=== PATIENT | female | born 1955 | race Caucasian/White ===

== ENCOUNTER → 2016-11-05 09:56 | Outpatient (CLI) | payer BC, SELFPAY ==
--- NOTE | 2016-11-05 09:58 | HPBD_ITS ---
STUDY: DUAL ENERGY X-RAY ABSORPTIOMETRY / DXA REASON FOR EXAM: Female, 61 years old. The patient is postmenopausal. Loss of height. TECHNIQUE: Bone Mineral Density (BMD) measurements of lumbar spine and bilateral hips were obtained. COMPARISON: Comparison is made with prior study dated July 15, 2012. FINDINGS: Lumbar Spine (L1-L4): g/cm2 (1.095) / T-score (-0.7) / Z-score (0.7) Findings are suggestive of normal bone density with a low fracture risk. Left Femur Total: g/cm2 (0.927) / T-score (-0.6) / Z-score (0.4) Left Femoral Neck: g/cm2 (0.963) / T-score (-0.5) / Z-score (0.8) Right Femur Total: g/cm2 (1.004) / T-score (0.0) / Z-score (1.1) Right Femoral Neck: g/cm2 (0.969) / T-score (-0.5) / Z-score (0.9) The T-Scores on the most recent prior examination were: Lumbar Spine (L1-L4): There has been worsening of bone density since the previous examination. Left Femur Total: which represents a worsening of 1.3%. Right Femur Total: which represents a worsening of 4.1%. HPBD/Dexa Bone Density Study (HP) IMPRESSION: The patient is considered normal as outlined below according to World En[employer] Organization (WHO) criteria with a low fracture risk. There has been worsening of bone density since the previous examination. Reference Information: The T-score is the number of standard deviations above or below the standard which is normal for young adults at their peak bone mineral density. The World Health Organization (WHO) interprets the T-scores as follows: Above -1 Normal bone density Between -1 and -2.5 Osteopenia Equal to / or below -2.5 Osteoporosis As a practical clinical guideline, osteopenia may be graded as follows: Mild -1 through -1.5 Moderate -1.6 through -2.0 Severe -2.1 through -2.4 The Z-score is the number of standard deviations above or below age-matched controls. A Z-score of less than -1.5 would be considered abnormal. References: 1. NIH Osteoporosis and Related Bone Diseases http://www.osteo.org 2. International Society for Clinical Densitometry http://www.iscd.org 3. National Osteoporosis Foundation http://www.nof.org Electronically Signed: Gurinder Yates MD at 8:32 EDT Tel [phone], Service support ,
== END | disposition home or self-care (01) ==
PROVIDERS: Family Provider Family Medicine; PCP Family Medicine; Visit Provider Family Medicine
DX: Z13.820 Encounter for screening for osteoporosis (principal)
CPT/HCPCS: 77080

== ENCOUNTER → 2019-01-26 14:36 | Outpatient (CLI) | payer MEDICARE, OTHER, SELFPAY ==
[2019-01-26 16:37] VITALS: BMI 33.4
== END ==
PROVIDERS: Family Provider Family Medicine; PCP Family Medicine; Referring Provider Physician Assistant; Visit Provider Physician Assistant
DX: J02.9 Acute pharyngitis, unspecified (principal)
CPT/HCPCS: 87081

== ENCOUNTER → 2019-08-26 09:08 | Outpatient (CLI) | payer MEDICARE, OTHER, SELFPAY ==
[2019-01-26 16:37] VITALS: BMI 33.4
[2019-08-26 12:51] LABS: Erythrocyte Sedimentation Rate 26 mm/hr (0-30)
== END ==
PROVIDERS: PCP Family Medicine; Visit Provider Family Medicine
DX: R51 Headache (principal)
CPT/HCPCS: 36415; 85652

== ENCOUNTER 2020-05-10 19:21 | Emergency (ER) | payer OTHER, MEDICARE, SELFPAY ==
[2019-01-26 16:37] VITALS: BMI 33.4
[2020-05-10 19:21] VITALS: BP 136/71; PULSE 71; RESP 16; TEMP 36.7; O2SAT 98; BMI 33.9
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
[2020-05-10 21:27] VITALS: BP 134/86; PULSE 66; RESP 16; O2SAT 98
== END 2020-05-10 21:24 | disposition home or self-care (01) ==
LOC: ED 20:07
PROVIDERS: Emergency Provider Emergency Medicine; PCP Family Medicine
DX: S09.90XA Unspecified injury of head, initial encounter (principal); S16.1XXA Strain of muscle, fascia and tendon at neck level, initial encounter; S40.022A Contusion of left upper arm, initial encounter; V43.52XA Car driver injured in collision with other type car in traffic accident, initial encounter; Y93.89 Activity, other specified; Y92.410 Unspecified street and highway as the place of occurrence of the external cause; Y99.9 Unspecified external cause status
CPT/HCPCS: 70450; 72125; 73130; 99283

== ENCOUNTER 2020-09-20 11:02 | Outpatient (RCR) | payer MEDICARE, OTHER, SELFPAY ==
[2020-09-20] MEDS: COVID-19 VACC, MRNA(PFIZER)/PF 30 MCG/0.3 ML SYRINGE IM (09:11)
[2020-10-11] MEDS: COVID-19 VACC, MRNA(PFIZER)/PF 30 MCG/0.3 ML SYRINGE IM (08:50)
== END 2020-12-25 23:59 ==
LOC: IMMUN 11:02
PROVIDERS: PCP Family Medicine; Referring Provider Family Medicine; Visit Provider Family Medicine
DX: Z23 Encounter for immunization (principal)
CPT/HCPCS: 0001A; 0002A; 91300

== ENCOUNTER 2021-09-05 06:36 | Outpatient (CLI) | payer MEDICARE, OTHER, SELFPAY ==
--- NOTE | 2021-09-05 06:40 | CT_ITS ---
STUDY: CT ABDOMEN AND PELVIS WITH CONTRAST REASON FOR EXAM: Female, 65 years old. LLQ ABD PAIN RADIATION DOSAGE (If Supplied By Facility): CTDIvol = ( 17.86 ) mGy, DLP = ( 871.96 ) mGycm TECHNIQUE: Transaxial images were obtained from the dome of the diaphragm to the symphysis pubis with oral contrast. Oral and amp; IV Gastrografin and amp; 100mL Isovue-300 was administered. Sagittal and coronal images were reconstructed. Individualized dose optimization techniques were used for this CT. COMPARISON: None. FINDINGS: The visualized lung bases are unremarkable. The visualized portions of the heart are within normal limits. There is decreased attenuation of the liver consistent with steatosis. Normal gallbladder and extrahepatic biliary system. Normal spleen. Normal pancreas. Normal bilateral adrenal glands. Normal right kidney. There is a 1 cm cyst in the upper pole of the left kidney. A 1 cm cyst is also seen along the anterior midportion of the left kidney. There is a small hiatal hernia. Normal small intestine. Normal colon. The appendix is visualized and appears normal. Normal abdominal aorta. Normal inferior vena cava. Normal retroperitoneum. Normal urinary bladder. Normal abdominal wall. Normal osseous structures. CT/Abdomen/Pelvis WITH Contrast IMPRESSION: Fatty infiltration of the liver. There are 2 small cysts in the left kidney. Electronically Signed: Gurinder Yates MD at 9:37 EST ,
[2021-09-05 07:01] LABS: CREATININE FINGERSTICK 0.7 mg/dL (0.55-1.02); EGFR FINGERSTICK > 60.0000 mL/min (>60)
== END 2021-09-05 23:59 | disposition home or self-care (01) ==
LOC: CT 06:38
PROVIDERS: PCP Family Medicine; Referring Provider Family Medicine; Visit Provider Family Medicine
DX: R10.32 Left lower quadrant pain (principal); R19.4 Change in bowel habit; Z80.0 Family history of malignant neoplasm of digestive organs
CPT/HCPCS: 74177; Q9967

== ENCOUNTER 2021-10-04 08:41 | Day surgery (SDC) | payer MEDICARE, OTHER, SELFPAY ==
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
[2021-10-04 09:14] VITALS: BP 120/55; PULSE 66; RESP 16; TEMP 36.7; O2SAT 97; BMI 32.1
[2021-10-04] MEDS: Lactated Ringers 1,000 ML 15 ML IV (09:22)
--- NOTE | 2021-10-04 10:15 | COLBX_PTH ---
PATIENT: KHANH BELTRAN LOC: EN U#:[id number] AGE/SX: 66/F ROOM: RE10/04/[address]: Dr. Arnaldo Alan MD : 1955 BED: DIS: 10/04/2021 SPEC #: [id number] RECD: 10/04/21 12:24 STATUS: KAROL ALENA #: [id number] ORESTES: 10/04/21 10:[address]: Arnaldo Alan DEPT: SURGICAL PATHOLOGY RECD BY: Cara Alvarez ENTERED: 10/04/21 13:19 SP TYPE: COLON BX OTHR DR: Dr. Ovidio Amaya DO Tissues: COLON BIOPSY Procedures: Surgery Specimen Level IV HEADER OPERATION: Colonoscopy (MAC) PRE-OP DIAGNOSIS: Diarrhea TISSUE SUBMITTED: Random colon biopsy MICROSCOPIC DIAGNOSIS Colon, random biopsy: Fragments of colonic mucosa, no pathologic diagnosis. TANA:chris 10/07/2021 MICROSCOPIC DESCRIPTION Slides are reviewed. GROSS DESCRIPTION Received in fixative is one container labeled with the patient's name and designated random colon biopsy. The specimen consists of multiple irregular fragments of light [place] soft tissue that in aggregate measure 2 x 1 x 0.1 cm. The specimen is totally submitted in one cassette. / AM:chris 10/04/2021 TC:4 CPT: 22843
[2021-10-04 11:06] VITALS: BP 103/52; BP 120/55; PULSE 73; RESP 16; TEMP 36.7; O2SAT 98
--- NOTE | 2021-10-04 11:07 | OP.COLON_ITS ---
Patient Name: Jaci Talamantes Procedure Date: 10/04/2021 10:34 AM Date of : 1955 Age: 66 Procedure: Colonoscopy Indications: Pelvic pain, Clinically significant diarrhea of unexplained origin Providers: Arnaldo Alan MD Medicines: See the Anesthesia note for documentation of the administered medications Patient Profile: Last Colonoscopy: none. The patient's first colonoscopy is today. Complications: No immediate complications. Procedure: Pre-Anesthesia Assessment: - Prior to the procedure, a History and Physical was performed, and patient medications and allergies were reviewed. The patient's tolerance of previous anesthesia was also reviewed. The risks and benefits of the procedure and the sedation options and risks were discussed with the patient. All questions were answered, and informed consent was obtained. Prior Anticoagulants: The patient has taken no previous anticoagulant or antiplatelet agents. ASA Grade Assessment: II - A patient with mild systemic disease. After reviewing the risks and benefits, the patient was deemed in satisfactory condition to undergo the procedure. After I obtained informed consent, the scope was passed under direct vision. Throughout the procedure, the patient's blood pressure, pulse, and oxygen saturations were monitored continuously. The pediatric colonoscope was introduced through the anus and advanced to the cecum, identified by appendiceal orifice and ileocecal valve. The colonoscopy was somewhat difficult due to a tortuous colon. Successful completion of the procedure was aided by applying abdominal pressure. The patient tolerated the procedure well. The quality of the bowel preparation was fair. The ileocecal valve and the appendiceal orifice were photographed. Scope In: 10:44:13 AM Scope Withdrawal Time 0 hours 7 minutes 20 seconds Scope Out: 11:00:25 AM Total Procedure Duration Time 0 hours 16 minutes 12 seconds Findings: The perianal and digital rectal examinations were normal. The colon (entire examined portion) was moderately tortuous. Advancing the scope required using manual pressure. A small amount of semi-liquid stool was found in the entire colon, making visualization difficult. The exam was otherwise without abnormality. Biopsies for histology were taken with a cold forceps from the entire colon for evaluation of microscopic colitis. Impression: - Preparation of the colon was fair. - Tortuous colon. - Stool in the entire examined colon. - The examination was otherwise normal. - Biopsies were taken with a cold forceps from the entire colon for evaluation of microscopic colitis. Recommendation: - Discharge patient to home. - Resume previous diet. - Continue present medications. - Telephone my office for pathology results in 1 week. - Repeat colonoscopy in 10 years for screening purposes. Procedure Code(s): --- Professional --- 60311, Colonoscopy, flexible; with biopsy, single or multiple Diagnosis Code(s): --- Professional --- R10.2, Pelvic and perineal pain R19.7, Diarrhea, unspecified Q43.8, Other specified congenital malformations of intestine CPT copyright 2017 [employer]. All rights reserved. The codes documented in this report are preliminary and upon bleacher [employer] review may be revised to meet current compliance requirements. Arnaldo Alan MD 10/04/2021 11:06:56 AM This report has been signed electronically. Number of Addenda: 0 Note Initiated On: 10/04/2021 10:34 AM
--- NOTE | 2021-10-04 11:08 | OP.CCLET_ITS ---
10/04/2021 Ovidio Amaya [address] [place] [address] Re : Colonoscopy procedure for Jaci Talamantes Dear Dr. Amaya This procedure was performed on Monday, October 04, 2021. My impressions and recommendations are as follows: Impressions : - Preparation of the colon was fair. - Tortuous colon. - Stool in the entire examined colon. - The examination was otherwise normal. - Biopsies were taken with a cold forceps from the entire colon for evaluation of microscopic colitis. Recommendations : - Discharge patient to home. - Resume previous diet. - Continue present medications. - Telephone my office for pathology results in 1 week. - Repeat colonoscopy in 10 years for screening purposes. My findings are described in the full procedure note, which is enclosed. If I can be of further assistance, please feel free to contact me at Doctor phone number(s): Work: . Sincerely, Arnaldo Alan MD 10/04/2021 11:06:56 AM This report has been signed electronically.
[2021-10-04 11:10] VITALS: BP 120/55; BP 99/51; PULSE 68; RESP 16; O2SAT 99
[2021-10-04 11:15] VITALS: BP 103/54; BP 120/55; PULSE 68; RESP 16; O2SAT 98
[2021-10-04 11:22] VITALS: BP 108/66; BP 120/55; PULSE 68; RESP 16; TEMP 36.8; O2SAT 16
[2021-10-04 11:57] VITALS: BP 120/55
== END 2021-10-04 23:59 | disposition home or self-care (01) ==
LOC: EN 08:41 → AC 08:42
PROVIDERS: PCP Family Medicine; Referring Provider Family Medicine; Visit Provider Surgery
PROC: 0DJD8ZZ Inspection of Lower Intestinal Tract, Via Natural or Artificial Opening Endoscopic (ICD-10-PCS; CPT 45378; principal; 2021-10-04 10:10)
DX: R19.7 Diarrhea, unspecified (principal); H35.3210 Exudative age-related macular degeneration, right eye, stage unspecified; Q43.8 Other specified congenital malformations of intestine; K44.9 Diaphragmatic hernia without obstruction or gangrene; R15.9 Full incontinence of feces; R10.2 Pelvic and perineal pain; K76.0 Fatty (change of) liver, not elsewhere classified; N28.1 Cyst of kidney, acquired; F32.A Depression, unspecified; F41.9 Anxiety disorder, unspecified; Z79.899 Other long term (current) drug therapy; Z86.010 Personal history of colon polyps; Z80.0 Family history of malignant neoplasm of digestive organs
CPT/HCPCS: 45380; 88305; J7120; J2405

== ENCOUNTER → 2022-01-30 | Outpatient (CLI) | payer MEDICARE, OTHER, SELFPAY ==
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
== END | disposition home or self-care (01) ==
PROVIDERS: PCP Family Medicine; Referring Provider Chiropractor; Visit Provider Chiropractor
DX: S20.219A Contusion of unspecified front wall of thorax, initial encounter (principal)
CPT/HCPCS: 71101

== ENCOUNTER → 2023-05-30 | Outpatient (CLI) | payer MEDICARE, OTHER, SELFPAY ==
[2023-05-30 08:57] LABS: Absolute Lymphocyte Count 3.89 X10^3/uL (0.83-4.51); Absolute Neutrophil Count 2.8 X10^3/uL (2.0-7.7); Basophil# 0.07 X10^3/uL; Basophil% 0.9 % (0-1); Eosinophil# 0.12 X10^3/uL; Eosinophils% 1.6 % (0-5); Hematocrit 40.3 % (37-47); Hemoglobin 12.7 g/dL (12.0-15.0); Lymphocyte # 3.89 X10^3/ul (0.83-4.51); Lymphocyte % 52.4 % (19-41); Mean Corp Hgb Conc 31.5 g/dL (32-36); Mean Corpuscular Hgb 29.1 pg (27.0-32.0); Mean Corpuscular Volume 92.4 fL (81-99); Mean Platelet Vol. 11.7 fl (6.2-12.0); Monocyte% 6.7 % (0-10); NRBC Flagged by Analyzer 0 % (0-5); Neutrophil # 2.82 X10^3/uL (2.7-7.7); Neutrophil % 38.1 % (47-70); Platelet Count 187 K/mm3 (150-450); RBC Distribution Width CV 14.1 % (11.6-14.6); RBC Distribution Width SD 47.8 fl (35.1-43.9); Red Blood Count 4.36 M/mm3 (4.2-5.4); White Blood Count 7.4 K/mm3 (4.4-11.0)
[2023-05-30 09:33] LABS: ALB/GLOB Ratio 1.1 RATIO (0.9-2.4); AST(SGOT) 17 U/L (15-37); Alanine Aminotransfer ALT/SGPT 27 U/L (13-56); Albumin, Serum 3.4 g/dL (3.2-5.0); Alkaline Phosphatase 62 U/L (45-117); Anion Gap 3 (5-15); BUN 17 mg/dL (7-18); BUN/Creat Ratio 20.4 RATIO (10-20); Chloride 108 mmol/L (98-107); Cholesterol 240 mg/dL (200); Creatinine, Serum 0.84 mg/dL (0.55-1.02); EST Glomerular Filtration Rate 72 mL/min (>60); Est Glom Filt Rate - Afr Amer 87 mL/min (>60); Globulin 3.1 g/dL (2.2-4.2); Glucose 90 mg/dL (74-106); High Density Lipoprotein 86 mg/dL; Potassium 3.8 mmol/L (3.5-5.1); Protein, Total 6.5 g/dL (6.4-8.2); Sodium Level 140 mmol/L (136-145); Triglycerides 72 mg/dL; Very Low Density Lipoprotein 14 mg/dL (5-40)
== END | disposition home or self-care (01) ==
LOC: LAB 08:18
PROVIDERS: PCP Family Medicine; Referring Provider Family Medicine; Visit Provider Family Medicine
DX: E78.5 Hyperlipidemia, unspecified (principal); Z51.81 Encounter for therapeutic drug level monitoring
CPT/HCPCS: 36415; 80053; 80061; 85025

== ENCOUNTER → 2023-06-06 | Outpatient (CLI) | payer MEDICARE, OTHER, SELFPAY ==
--- NOTE | 2023-06-06 08:00 | MRI_ITS ---
STUDY: MRI CERVICAL SPINE WITHOUT CONTRAST REASON FOR EXAM: Female, 67 years old. LEFT C5-6 RADICULOPATHY TECHNIQUE: Standardized fat and water weighted pulse sequences were obtained in the sagittal and axial planes. COMPARISON: CT 05/10/2020 FINDINGS: Normal foramen magnum and brainstem-cervical cord junction. Normal craniovertebral junction. Normal anterior atlantoaxial articulation. Normal odontoid process. Normal cervical lordosis. Normal vertebral bodies and posterior osseous elements. C2-3: Normal endplates. Normal disc height, signal and morphology. Normal central canal and intervertebral neural foramina. C3-4: Severe right facet hypertrophy and mild left facet hypertrophy. 2 mm of anterolisthesis of C3 on C4 with no spinal stenosis or neural foraminal stenosis. C4-5: Mild left facet hypertrophy. No spinal stenosis or neural foraminal stenosis. C5-6: Mild bilobed disc osteophyte complex produces mild spinal stenosis and mild bilateral neural foraminal stenosis. C6-7: Mild broad disc osteophyte complex produces a mild spinal stenosis and mild bilateral neural foraminal stenosis. C7-T1: Normal endplates. Normal disc height, signal and morphology. Normal central canal and intervertebral neural foramina. Normal cervical cord. Normal visualized soft tissue structures. MRI/Spine Cervical (Routine) IMPRESSION: Multilevel degenerative changes, as described above. Electronically Signed: Florencio Vann MD at 23:04 EST ,
== END | disposition home or self-care (01) ==
LOC: MRI 07:58
PROVIDERS: PCP Family Medicine; Referring Provider Family Medicine; Visit Provider Family Medicine
DX: M54.12 Radiculopathy, cervical region (principal)
CPT/HCPCS: 72141

== ENCOUNTER → 2024-06-01 | Outpatient (CLI) | payer MEDICARE, OTHER, SELFPAY ==
--- NOTE | 2024-06-01 15:09 | RAD_ITS ---
INDICATION: B/L PAIN VS RADICULAR SX EXAMINATION/TECHNIQUE: X-RAY - XR Hips Bilateral with Pelvis when performed; Min 5 Views COMPARISON: Right hip radiographs dated 09/07/2019. FINDINGS: PELVIC BONES: No displaced fracture, destructive or sclerotic lesions. Note that overlapping bowel shadows may however obscure fine detail. Sacroiliac joints are unremarkable. No widening of the pubic symphysis. HIPS: There is moderate degenerative arthrosis of the hip joints bilaterally with moderate joint space narrowing, marginal osteophyte formation, and small subchondral cyst formation. No displaced fracture seen. SOFT TISSUES: There are multiple small calcified phleboliths in the true pelvis. No soft tissue swelling or gas. RAD/Hips B/L min 2 views w/ Pelvis IMPRESSION: Moderate degenerative arthrosis of the hip joints bilaterally. No evidence of displaced pelvic or hip fracture. Electronically Signed: Curtis Pate MD at 16:03 EST ,
== END | disposition home or self-care (01) ==
LOC: RAD 14:59
PROVIDERS: PCP Family Medicine; Referring Provider Clinical Nurse Specialist Adult Health; Visit Provider Clinical Nurse Specialist Adult Health
DX: M25.551 Pain in right hip (principal); M25.552 Pain in left hip
CPT/HCPCS: 73521

== ENCOUNTER → 2024-06-03 | Outpatient (CLI) | payer MEDICARE, OTHER, SELFPAY ==
[2024-06-03 12:29] LABS: ALB/GLOB Ratio 1.4 RATIO (0.9-2.4); AST(SGOT) 19 U/L (15-37); Alanine Aminotransfer ALT/SGPT 25 U/L (13-56); Alkaline Phosphatase 76 U/L (45-117); Anion Gap 6 (5-15); BUN 17 mg/dL (7-18); BUN/Creat Ratio 24.5 RATIO (10-20); Calcium,Total 9.3 mg/dL (8.5-10.1); Chloride 108 mmol/L (98-107); Cholesterol 268 mg/dL (200); Creatinine, Serum 0.69 mg/dL (0.55-1.02); EST Glomerular Filtration Rate 89 mL/min (>60); Est Glom Filt Rate - Afr Amer 107 mL/min (>60); Globulin 2.9 g/dL (2.2-4.2); Glucose 92 mg/dL (74-106); High Density Lipoprotein 107 mg/dL; Protein, Total 6.9 g/dL (6.4-8.2); Sodium Level 142 mmol/L (136-145); Triglycerides 61 mg/dL; Very Low Density Lipoprotein 12 mg/dL (5-40)
[2024-06-03 12:30] LABS: Absolute Lymphocyte Count 1.89 X10^3/uL (0.83-4.51); Absolute Neutrophil Count 2.9 X10^3/uL (2.0-7.7); Basophil# 0.06 X10^3/uL; Basophil% 1.1 % (0-1); Eosinophil# 0.22 X10^3/uL; Eosinophils% 3.9 % (0-5); Hemoglobin 13.4 g/dL (12.0-15.0); Lymphocyte # 1.89 X10^3/ul (0.83-4.51); Lymphocyte % 33.3 % (19-41); Mean Corp Hgb Conc 32.7 g/dL (32-36); Mean Corpuscular Hgb 29.6 pg (27.0-32.0); Mean Corpuscular Volume 90.7 fL (81-99); Mean Platelet Vol. 11.8 fl (6.2-12.0); Monocyte# 0.61 X10^3/uL; Monocyte% 10.7 % (0-10); NRBC Flagged by Analyzer 0 % (0-5); Neutrophil # 2.89 X10^3/uL (2.7-7.7); Neutrophil % 50.8 % (47-70); Platelet Count 198 K/mm3 (150-450); RBC Distribution Width CV 12.7 % (11.6-14.6); RBC Distribution Width SD 42.5 fl (35.1-43.9); Red Blood Count 4.52 M/mm3 (4.2-5.4); White Blood Count 5.7 K/mm3 (4.4-11.0)
== END | disposition home or self-care (01) ==
LOC: BFHLAB 08:16
PROVIDERS: PCP Family Medicine; Visit Provider Family Medicine
DX: E78.5 Hyperlipidemia, unspecified (principal); R79.89 Other specified abnormal findings of blood chemistry
CPT/HCPCS: 36415; 80053; 80061; 85025

== ENCOUNTER → 2024-07-19 | Outpatient (CLI) | payer MEDICARE, OTHER, SELFPAY ==
--- NOTE | 2024-07-19 09:00 | BD_ITS ---
STUDY: DUAL ENERGY X-RAY ABSORPTIOMETRY / DXA REASON FOR EXAM: Female, 68 years old. [id number] TECHNIQUE: Bone Mineral Density (BMD) measurements of lumbar spine and bilateral hips were obtained. COMPARISON: 11/05/2016 FINDINGS: Lumbar Spine (L1-L4): g/cm2 (0.882) / T-score (-1.2) / Z-score (0.9) Findings are suggestive of osteopenia with a moderate fracture risk. Left Femur Total: g/cm2 (0.880) / T-score (-0.5) / Z-score (1.0) Left Femoral Neck: g/cm2 (0.832) / T-score (-0.2) / Z-score (1.7) Right Femur Total: g/cm2 (0.916) / T-score (-0.2) / Z-score (1.3) Right Femoral Neck: g/cm2 (0.844) / T-score (0.0) / Z-score (1.8) BD/Dexa Bone Density Study IMPRESSION: The patient is considered osteopenic as outlined below according to [employer] Organization (WHO) criteria with a moderate fracture risk. There has been no change of bone density since the previous examination. Reference Information: The T-score is the number of standard deviations above or below the standard which is normal for young adults at their peak bone mineral density. The World Health Organization (WHO) interprets the T-scores as follows: Above -1 Normal bone density Between -1 and -2.5 Osteopenia Equal to / or below -2.5 Osteoporosis As a practical clinical guideline, osteopenia may be graded as follows: Mild -1 through -1.5 Moderate -1.6 through -2.0 Severe -2.1 through -2.4 The Z-score is the number of standard deviations above or below age-matched controls. A Z-score of less than -1.5 would be considered abnormal. References: 1. NIH Osteoporosis and Related Bone Diseases www osteo.org 2. International Society for Clinical Densitometry www iscd.org 3. National Osteoporosis Foundation www nof.org Electronically Signed: Florencio Vann MD at 23:06 EST ,
== END | disposition home or self-care (01) ==
LOC: OPBD 08:54
PROVIDERS: PCP Family Medicine; Referring Provider Family Medicine; Visit Provider Family Medicine
DX: M81.0 Age-related osteoporosis without current pathological fracture (principal)
CPT/HCPCS: 77080

== ENCOUNTER 2024-10-13 12:00 | Outpatient (CLI) | payer MEDICARE, OTHER, SELFPAY ==
[2024-10-13 13:38] LABS: Anion Gap 15 (5-15); BUN 15 mg/dL (4-19); BUN/Creat Ratio 19.4 RATIO (10-20); Calcium,Total 9.3 mg/dL (7.6-11.0); Carbon Dioxide 20.3 mmol/L (21.0-32.0); Chloride 104 mmol/L (98-108); Creatinine, Serum 0.77 mg/dL (0.70-1.20); EST Glomerular Filtration Rate 82 (>60); Glucose 79 mg/dL (70-99); Potassium 4.4 mmol/L (3.3-5.1); Sodium Level 139 mmol/L (133-145)
== END 2024-10-13 23:59 | disposition home or self-care (01) ==
PROVIDERS: PCP Family Medicine; Referring Provider Anesthesiology Pain Medicine; Visit Provider Anesthesiology Pain Medicine
DX: Z51.81 Encounter for therapeutic drug level monitoring (principal); Z79.1 Long term (current) use of non-steroidal anti-inflammatories (NSAID)
CPT/HCPCS: 36415; 80048

== ENCOUNTER → 2025-07-05 | Outpatient (CLI) | payer MEDICARE, OTHER, SELFPAY ==
--- OUTSIDE RECORDS SUMMARY | 2025-07-05 09:18 | XMS RPT_ITS | CCD ---
Author Organization [facility] Care Team Providers Care Export Freight Specialist Name Role Phone Joe Sheridan Primary Care Provider [phone] Alexx Amaya DO Primary Care Provider Alexx Amaya DO Primary Care Provider ALEXX AMAYA Primary Care Unavailable Dr. Alexx Amaya DO Primary Care Provider [phone] Dr. Alexx Amaya DO Attending Provider Dr. Alexx Amaya DO Referring Provider Dr. Steven Magdaleno MD Attending Provider Dr. Steven Magdaleno MD Referring Provider [phone] Alexx Amaya Attending Unavailable Alexx Amaya Referring Unavailable Alexx Amaya Primary Care Unavailable Alexx Amaya Primary Care Unavailable Steven Magdaleno Attending Unavailable Steven Magdaleno Referring Unavailable Alexx Amaya Referring Unavailable Alexx Amaya Primary Care Unavailable Alexx Amaya Attending Unavailable Alexx Amaya Primary Care Unavailable Alexx Amaya Attending Unavailable Shelly Weber Attending Unavailable Shelly Weber Referring Unavailable Alexx Amaya Primary Care Unavailable Allergies Allergy Classification Reported Allergen(s) Allergy Type Date of Onset Reaction(s) Facility (11 sources) Sulfonamides (Antibiotic); Translations: [SULFA (SULFONAMIDE ANTIBIOTICS)] Allergy to substance 10-02-2005 Rash [facility] Medications Current Medications Medication Drug Class(es) Dates Sig (Normalized) Sig (Original) ascorbic acid 1000 mg oral tablet (5 sources) Vitamin C Start: 10-02-2005 VITAMIN C 1,000 MG TAB Take one(1) tablet daily. 0 10/02/2005 Active Comment on above: Take one(1) tablet d aily. Casey extract (5 sources) Non-Standardized Food Allergenic Extract Start: 10-02-2005 [id number] ACID-B6-SOY CASEY EXT 6 MCG-400 MCG-2 MG-93 MG TAB 0 10/02/2005 Active Start: 10-02-2005 [id number] ACID -B6-SOY CASEY EXT 6 MCG-400 MCG-2 MG-93 MG TAB benoxinate hydrochloride 4 mg/ml / fluorescein sodium 2.5 mg/ml ophthalmic solution (1 source) Diagnostic Dye Start: 12-03-2022 End: 12-03-2022 fluorescein-benoxinate 0.25-0.4 % 1 Drop (FLURESS) 24 hr buPROPion hydrochloride 150 mg extended release oral tablet (4 sources) Aminoketone Start: 10-02-2020 take 1 tablet by mouth once daily Bupropion Hcl 150 mg tablet extended release 24 hr Active 150 mg PO DAILY October 02, 2020 12:00am calcium ascorbate 500 mg oral tablet (8 sources) Start: 10-02-2020 End: 05-24-2021 take 1 tablet by mouth once daily Ascorbate Calcium (Vitamin C) 500 mg tablet Active 500 mg PO DAILY October 02, 2020 12:00am calcium carbonate 500 mg chewable tablet (8 sources) Start: 10-02-2005 CALCIUM ANTACID 500 MG CHEWABLE TAB Take one(1) tablet daily. 0 10/02/2005 Active calcium carbonat e (CALCIUM 300 ORAL) Take by mouth. Active calcium carbonat e (CALCIUM 300 ORAL) Take by mouth. 0 Active Comment on above: Take one(1) tablet d aily. Take by mouth. chondroitin sulfates 400 mg / glucosamine hydrochloride 500 mg oral capsule (5 sources) Start: 10-27-19 08 gluc polanco/chondro polanco a/vit c/mn(GLUCOSAMINE CHONDROITIN MAXIMUM STRENGTH 500 MG-400 MG CAP) Take one(1) tablet daily. 0 10/27/2007 Active Comment on above: Take one(1) tablet d aily. cinnamon bark 500 mg oral capsule (9 sources) Start: 02-27-20 11 take 1 capsule by mouth once daily Cinnamon Bark (Cinnamon) 500 mg capsule Active 500 mg PO DAILY September 20, 2021 1:00am Comment on above: Take by mouth. Take one(1) capsule daily. ciprofloxacin 3 mg/ml ophthalmic solution (3 sources) Quinolone Antimicrobial Start: 11-14-19 ciprofloxacin HCl (CILOXAN) 0.3 % ophthalmic solution Before intravitreal injections OU 11/13/2022 Active Comment on above: Before intravitreal injections OU citalopram 10 mg oral tablet (9 sources) Serotonin Reuptake Inhibitor Start: 05-10-20 take 1 tablet by mouth once daily Citalopram 10 MG tablet Active 10 mg PO DAILY May 10, 2020 12:00am Start: 02-26-2011 take 3 tablets by mo [facility] once daily citalopram hydrobromide (CELEXA) 10 mg tablet Take 30 mg by mouth once daily. 0 02/26/2011 Active Comment on above: Take 30 mg by mouth once daily. Garlic (4 sources) Non-Standardized Food Allergenic Extract Start: 10-02-2020 take 1 capsule by mouth once daily Garlic 300 mg capsule Active 300 mg PO DAILY October 02, 2020 12:00am Start: 10-02-2020 take 1 capsule by mouth once d aily garlic 300 mg capsule Active 300 MG PO DAILY October 01, 2020 11:00pm Start: 10-02-2020 take 1 capsule by mouth once d aily garlic 300 mg capsule Active 300 MG PO DAILY October 02, 2020 12:00am glucosamine sulfate 500 mg oral tablet (4 sources) Start: 10-02-2020 take 1 tablet by mouth once daily Glucosamine Sulfate (Glucosamine) 500 mg tablet Active 500 mg PO DAILY October 02, 2020 12:00am administer with a meal magnesium gluconate 550 mg oral tablet (4 sources) Start: 10-02-2020 take 1 tablet by mouth once daily Magnesium 30 mg tablet Active 30 mg PO DAILY October 02, 2020 12:00am Kywloubdcxgs-Af-Esai-Mi nerals (Multiple Vitamin, Womens) tablet (4 sources) Start: 10-02-2020 Multivitamin-C a-Iron-Min erals (Multiple Vitamin, Womens) tablet Active 1 {tbl} PO DAILY October 02, 2020 12:00am Start: 10-02-2020 take 1 tablet by eliseo once daily Jupbtemheucz-No-Puli-Minerals (Multiple Vitamin, Womens) tablet Active 1 TABLET PO DAILY October 01, 2020 11:00pm Start: 10-02-2020 take 1 tablet by eliseo once daily Fmkzegalfhaq-Fd-Tcbv-Minerals (Multiple Vitamin, Womens) tablet Active 1 TABLET PO DAILY October 02, 2020 12:00am [place]-3 Fatty Acids-Vitamin E 1,000 mg cap (3 sources) Start: 02-26-2011 [place]-3 Fatty Acids-Vitamin E 1,000 mg cap Take 1 capsule by mouth. 0 02/26/2011 Active Comment on above: Take 1 capsule by [facility]. OTC NUTRITIONAL SUPPLEMENT (5 sources) Start: 10-03-2005 OTC NUTRITIONAL SUPPLEMENT Multi-vitamin, Take one(1) tablet daily. 0 10/03/2005 Active Comment on above: Multi-vitamin, Take one(1) tablet daily. phenylephrine hydrochloride 25 mg/ml ophthalmic solution (1 source) alpha-1 Adrenergic Agonist Start: 12-03-2022 End: 12-03-2022 PHENYLephrine 2.5 % 1 Drop (AK-DILATE, KIMMIE-SYNEPHRINE) potassium chloride 10 meq extended release oral capsule (4 sources) Start: 10-02-2020 take 1 capsule by mouth once daily Potassium Chloride 10 mEq capsule, extended release Active 10 meq PO DAILY October 02, 2020 12:00am tropicamide 10 mg/ml ophthalmic solution (1 source) Anticholinergic Start: 12-03-2022 End: 12-03-2022 tropicamide 1 % 1 Drop (MYDRIACYL) Completed/Discontinued Medications Medication Drug Class(es) Dates Sig (Normalized) Sig (Original) [place]-3 Fatty Acids-Vitamin E (FISH OIL) 1,000 mg ORAL Cap (2 sources) Start: 02-26-2011 [place]-3 Fatty Acids-Vitamin E (FISH OIL) 1,000 mg ORAL Cap Take 1 capsule by mouth. 0 02/26/2011 Active Comment on above: Take 1 capsule by [facility]. Problems Active Problems Problem Classification Problem Date Documented Da te Episodic/Chronic Disorders of lipid metabolism (2 sources) Hyperlipidemia, unspecified; Translations: [Hyperlipidemia, unspecified] Onset: 04-29-2024 Chronic Diverticulosis and diverticulitis (5 sources) Diverticular disease; Translations: [Diverticulosis of intestine, part unspecified, without perforation or abscess without bleeding] Onset: 02-26-2011 02-26-2011 Chronic Osteoarthritis (4 sources) Arthritis of first carpometacarpal joint of right hand; Translations: [Unilateral primary osteoarthritis of first carpometacarpal joint, right hand] 05-24-2021 Chronic Osteoporosis (1 source) Age-related osteoporosis without current pathological fracture; Translations: [Age-related osteoporosis without current pathological fracture] Onset: 08-11-2024 Chronic Other aftercare (1 source) Encounter for therapeutic drug level monitoring; Translations: [Encounter for therapeutic drug level monitoring] Onset: 11-09-2024 Episodic Other connective tissue disease (4 sources) Trigger thumb of right hand; Translations: [Trigger thumb, right thumb] 05-24-2021 Episodic Other gastrointestinal disorders (4 sources) Diarrhea; Translations: [Diarrhea, unspecified] 09-20-2021 Episodic Other upper respiratory infections (8 sources) Upper respiratory infection; Translations: [Acute upper respiratory infection, unspecified] 01-26-2019 Episodic Retinal detachments; defects; vascular occlusion; and retinopathy (2 sources) Exudative age-related macular degeneration; Translations: [Exudative age-related macular degeneration, unspecified eye, stage unspecified] Chronic Past or Other Problems Problem Classification Problem Date Documented Date Episodic/Chronic Hemorrhoids (5 sources) Internal hemorrhoids; Translations: [Other hemorrhoids] Onset: 02-26-2011 02-26-2011 Episodic Other non-traumatic joint disorders (1 source) Pain in right hip; Translations: [Pain in right hip] Onset: 06-30-2024 Episodic Residual codes; unclassified (5 sources) Family history of malignant neoplasm of gastrointestinal tract; Translations: [Family history of malignant neoplasm of digestive organs] Onset: 02-26-2011 02-26-2011 Episodic Results Test Name Value Interpretation Reference Range Facility Anion gap in Serum or Plasma Ordered By: Steven Magdaleno on 10-13-2024 Anion gap [Moles/Vol] 15 mmol/L 12-01 [facility] BUN/creatinine ratioOrdered By: Steven Magdaleno on 10-13-2024 Urea nitrogen/Creatinine [Mass ratio] 19.4 mg/mg 05-08 [facility] Basic Metabolic Profile (BMP )on 10-13-2024 BUN/CRE 19.4 RATIO Normal 05-08 [facility] Comment on above: Performed By: #### L 500.2500 #### [facility] [address] [place], [address] Calcium [Mass/Vol] 9.3 mg/dL Normal 7.6-11.0 [facility] Comment on above: Performed By: #### L 500.2500 #### [facility] [address] [place], [address] Chloride [Moles/Vol] 104 mmol/L Normal 98-108 [facility] Comment on above: Performed By: #### L 500.2500 #### [facility] [address] [place], [address] CO2 [Moles/Vol] 20.3 mmol/L Low 21.0-32.0 [facility] Comment on above: Performed By: #### L 500.2500 #### [facility] [address] [place], [address] Creatinine [Mass/Vol] 0.77 mg/dL Normal 0.70-1.20 [facility] Comment on above: Performed By: #### L 500.2500 #### [facility] [address] [place], [address] GAP 15 Normal 5-15 [facility] Comment on above: Performed By: #### L 500.2500 #### [facility] [address] [place], [address] GFR/1.73 sq M.predicted among non-blacks MDRD (S/P/Bld) [Vol rate/Area] 82 mL/min/{1.73_m2} Normal >60 [facility] Comment on above: Result Comment: mL/m in/1.73m2 CKD-EPI Creatinine Equation (2020) Performed By: #### L 500.2500 #### [facility] [address] [place], [address] Glucose [Mass/Vol] 79 mg/dL Normal 70-99 [facility] Comment on above: Performed By: #### L 500.2500 #### [facility] [address] [place], [address] Potassium [Moles/Vol] 4.4 mmol/L Normal 3.3-5.1 [facility] Comment on above: Performed By: #### L 500.2500 #### [facility] [address] [place], [address] Sodium [Moles/Vol] 139 mmol/L Normal 133-145 [facility] Comment on above: Performed By: #### L 500.2500 #### [facility] [address] [place], [address] Urea nitrogen [Mass/Vol] 15 mg/dL Normal 4-19 [facility] Comment on above: Performed By: #### L 500.2500 #### [facility] [address] [place], [address] Carbon dioxide, total [Moles /volume] in Central venous bloodOrdered By: Steven Magdaleno on 10-13-2024 CO2 [Moles/Vol] 20.3 mmol/L Low 21.0-32.0 [facility] Chloride assayOrdered By: Ernie Magdaleno on 10-13-2024 Chloride [Moles/Vol] 104 mmol/L 98-108 [facility] GFR/1.73 sq M.predicted ivana g non-blacks MDRD (S/P/Bld) [Vol rate/Area]Ordered By: Steven Magdaleno on 10-13-2024 Estimated GFR (MDRD) Non-Af Amer 82 >60 [facility] Comment on above: mL/min/1.73m2 CKD-EP I Creatinine Equation (2020) Potassium (Unsp spec) [Mass/ Vol]Ordered By: Steven Magdaleno on 10-13-2024 Potassium [Moles/Vol] 4.4 mmol/L 3.3-5.1 [facility] Serum creatinine measurement (mass/volume)Ordered By: Steven Magdaleno on 10-13-2024 Creatinine [Mass/Vol] 0.77 mg/dL 0.70-1.20 [facility] Serum glucose measurement (m ass/volume)Ordered By: Steven Magdaleno on 10-13-2024 Glucose [Mass/Vol] 79 mg/dL 70-99 [facility] Serum or plasma calcium janet urement (mass/volume)Ordered By: Steven Magdaleno on 10-13-2024 Calcium [Mass/Vol] 9.3 mg/dL 7.6-11.0 [facility] Serum or plasma urea nitroge n measurement (mass/volume)Ordered By: Steven Magdaleno on 10-13-2024 Urea nitrogen [Mass/Vol] 15 mg/dL 4- [facility] Sodium levelOrdered By: Pranav Magdaleno on 10-13-2024 Sodium [Moles/Vol] 139 mmol/L 133-145 [facility] Dexa Bone Density Studyon Dexa Bone Density Study [facility] [address] [place], [place] [address] Dexa Bone Density Study MR#: [id number] Acct: [id number] Name: JACI TALAMANTES ANN Rep #: [id number] : 1955 F 68 From: Florencio Vann MD PCP: Dr. Alexx Amaya DO Status: REG CLI Study: Dexa Bone Density Study Date of Exam: 07/19/24 Exam# [id number] Ordering Dr: Alexx Amaya DO [id number] STUDY: DUAL ENERGY X-RAY ABSORPTIOMETRY / DXA REASON FOR EXAM: Female, 68 years old. [id number] TECHNIQUE: Bone Mineral Density (BMD) measurements of lumbar spine and bilateral hips were obtained. COMPARISON: 11/05/2016 FINDINGS: Lumbar Spine (L1-L4): g/cm2 (0.882) / T-score (-1.2) / Z-score (0.9) Findings are suggestive of osteopenia with a moderate fracture risk. Left Femur Total: g/cm2 (0.880) / T-score (-0.5) / Z-score (1.0) Left Femoral Neck: g/cm2 (0.832) / T-score (-0.2) / Z-score (1.7) Right Femur Total: g/cm2 (0.916) / T-score (-0.2) / Z-score (1.3) Right Femoral Neck: g/cm2 (0.844) / T-score (0.0) / Z-score (1.8) BD/Dexa Bone Density Study IMPRESSION: The patient is considered osteopenic as outlined below according to [employer] Organization (WHO) criteria with a moderate fracture risk. There has been no change of bone density since the previous examination. Reference Information: The T-score is the number of standard deviations above or below the standard which is normal for young adults at their peak bone mineral density. The World Health Organization (WHO) interprets the T-scores as follows: Above -1 Normal bone density Between -1 and -2.5 Osteopenia Equal to / or below -2.5 Osteoporosis As a practical clinical guideline, osteopenia may be graded as follows: Mild -1 through -1.5 Moderate -1.6 through -2.0 Severe -2.1 through -2.4 The Z-score is the number of standard deviations above or below age-matched controls. A Z-score of less than -1.5 would be considered abnormal. References: 1. NIH Osteoporosis and Related Bone Diseases www osteo.org 2. International Society for Clinical Densitometry www iscd.org 3. National Osteoporosis Foundation www nof.org Electronically Signed: Florencio Vann MD at 23:06 EST , CC: Dr. Alexx Amaya, DO Manager Report: Signed Normal [facility] CBC W/Diff, Automatedon 11-1 -2023 Absolute Lymph 1.89 X10 3/uL Normal 0.83-4.51 [facility] Comment on above: Performed By: #### L 100.0100, L500.4100, L500.4050 #### [facility] [address] [place], [address] Absolute Neut 2.9 X10 3/uL Normal 2.0-7.7 [facility] Comment on above: Performed By: #### L 100.0100, L500.4100, L500.4050 #### [facility] [address] [place], [address] Basophils/100 WBC (Bld) 1.1 % High 0-1 [facility] Comment on above: Performed By: #### L 100.0100, L500.4100, L500.4050 #### [facility] [address] [place], [address] Eosinophils/100 WBC (Bld) 3.9 % Normal 0-5 [facility] Comment on above: Performed By: #### L 100.0100, L500.4100, L500.4050 #### [facility] [address] [place], [address] Erythrocyte distribution width (RBC) [Ratio] 12.7 % Normal 11.6-14.6 [facility] Comment on above: Performed By: #### L 100.0100, L500.4100, L500.4050 #### [facility] [address] [place], [address] Hematocrit (Bld) [Volume fraction] 41.0 % Normal 37-47 [facility] Comment on above: Performed By: #### L 100.0100, L500.4100, L500.4050 #### [facility] [address] [place], [address] Hemoglobin (Bld) [Mass/Vol] 13.4 g/dL Normal 12.0-15.0 [facility] Comment on above: Performed By: #### L 100.0100, L500.4100, L500.4050 #### [facility] [address] [place], [address] IG% 0.200 Normal 0.0-0.9 [facility] Comment on above: Result Comment: IG% - Immature Granulocytes (promyelocytes, myelocytes and metamyelocytes) > 1% indicates that a LEFT SHIFT is Present. Performed By: #### L 100.0100, L500.4100, L500.4050 #### [facility] [address] [place], [address] Lymphocytes/100 WBC (Bld) 33.3 % Normal 19-41 [facility] Comment on above: Performed By: #### L 100.0100, L500.4100, L500.4050 #### [facility] [address] [place], [address] MCH (RBC) [Entitic mass] 29.6 pg Normal 27.0-32.0 [facility] Comment on above: Performed By: #### L 100.0100, L500.4100, L500.4050 #### [facility] [address] [place], [address] MCHC (RBC) [Mass/Vol] 32.7 g/dL Normal 32-36 [facility] Comment on above: Performed By: #### L 100.0100, L500.4100, L500.4050 #### [facility] [address] [place], [address] MCV (RBC) [Entitic vol] 90.7 fL Normal 81-99 [facility] Comment on above: Performed By: #### L 100.0100, L500.4100, L500.4050 #### [facility] [address] [place], [address] Monocytes/100 WBC (Bld) 10.7 % High 0-10 [facility] Comment on above: Performed By: #### L 100.0100, L500.4100, L500.4050 #### [facility] [address] [place], [address] Neutrophils/100 WBC (Bld) 50.8 % Normal 47-70 [facility] Comment on above: Performed By: #### L 100.0100, L500.4100, L500.4050 #### [facility] [address] [place], [address] Nucleated RBC (Bld) [#/Vol] 0 10*3/uL Normal 0-5 [facility] Comment on above: Performed By: #### L 100.0100, L500.4100, L500.4050 #### [facility] [address] [place], [address] Platelet mean volume (Bld) [Entitic vol] 11.8 fL Normal 6.2-12.0 [facility] Comment on above: Performed By: #### L 100.0100, L500.4100, L500.4050 #### [facility] [address] [place], [address] Platelets (Bld) [#/Vol] 198 10*3/uL Normal 150-450 [facility] Comment on above: Performed By: #### L 100.0100, L500.4100, L500.4050 #### [facility] [address] [place], [address] RBC (Bld) [#/Vol] 4.52 10*6/uL Normal 4.2-5.4 [facility] Comment on above: Performed By: #### L 100.0100, L500.4100, L500.4050 #### [facility] [address] [place], [address] RDW SD 42.5 fl Normal 35.1-43.9 [facility] Comment on above: Performed By: #### L 100.0100, L500.4100, L500.4050 #### [facility] [address] [place], [address] WBC (Bld) [#/Vol] 5.7 10*3/uL Normal 4.4-11.0 [facility] Comment on above: Performed By: #### L 100.0100, L500.4100, L500.4050 #### [facility] [address] [place], [address] Comprehensive Metabolic Prof ilon 06-03-2024 Albumin [Mass/Vol] 4.0 g/dL Normal 3.2-5.0 [facility] Comment on above: Performed By: #### L 100.0100, L500.4100, L500.4050 #### [facility] [address] [place], [address] Albumin/Globulin [Mass ratio] 1.4 {ratio} Normal 0.9-2.4 [facility] Comment on above: Performed By: #### L 100.0100, L500.4100, L500.4050 #### [facility] [address] [place], [address] ALK P 76 U/L Normal 45-117 [facility] Comment on above: Performed By: #### L 100.0100, L500.4100, L500.4050 #### [facility] [address] [place], [address] ALT [Catalytic activity/Vol] 25 U/L Normal 13-56 [facility] Comment on above: Performed By: #### L 100.0100, L500.4100, L500.4050 #### [facility] [address] [place], [address] AST [Catalytic activity/Vol] 19 U/L Normal 15-37 [facility] Comment on above: Performed By: #### L 100.0100, L500.4100, L500.4050 #### [facility] [address] [place], [address] Bilirubin [Mass/Vol] 0.70 mg/dL Normal 0.20-1.00 [facility] Comment on above: Result Comment: For patients on eltrombopag therapy, use of Dimension [place] TBIL is not recommended. Performed By: #### L 100.0100, L500.4100, L500.4050 #### [facility] [address] [place], [address] BUN/CRE 24.5 RATIO High 10-20 [facility] Comment on above: Performed By: #### L 100.0100, L500.4100, L500.4050 #### [facility] [address] [place], [address] CA,Total 9.3 mg/dL Normal 8.5-10.1 [facility] Comment on above: Performed By: #### L 100.0100, L500.4100, L500.4050 #### [facility] [address] [place], [address] Chloride [Moles/Vol] 108 mmol/L High 98-107 [facility] Comment on above: Performed By: #### L 100.0100, L500.4100, L500.4050 #### [facility] [address] [place], [address] CO2 [Moles/Vol] 27.0 mmol/L Normal 21.0-32.0 [facility] Comment on above: Performed By: #### L 100.0100, L500.4100, L500.4050 #### [facility] [address] [place], [address] Creatinine [Mass/Vol] 0.69 mg/dL Normal 0.55-1.02 [facility] Comment on above: Result Comment: The validity of the calculated GFR GFRAA in patients over 70 years has not been determined. Clinical correlation is essential. Performed By: #### L 100.0100, L500.4100, L500.4050 #### [facility] [address] [place], [address] EST GFR - AA 107 mL/min Normal >60 [facility] Comment on above: Result Comment: Afri can Citizen [place] GFR Calc Performed By: #### L 100.0100, L500.4100, L500.4050 #### [facility] [address] [place], [address] GAP 6 Normal 5-15 [facility] Comment on above: Performed By: #### L 100.0100, L500.4100, L500.4050 #### [facility] [address] [place], [address] GFR/1.73 sq M.predicted among non-blacks MDRD (S/P/Bld) [Vol rate/Area] 89 mL/min/{1.73_m2} Normal >60 [facility] Comment on above: Result Comment: Non- GFR Calc Performed By: #### L 100.0100, L500.4100, L500.4050 #### [facility] [address] [place], [address] Globulin (S) [Mass/Vol] 2.9 g/dL Normal 2.2-4.2 [facility] Comment on above: Performed By: #### L 100.0100, L500.4100, L500.4050 #### [facility] [address] [place], [address] Glucose [Mass/Vol] 92 mg/dL Normal 74-106 [facility] Comment on above: Performed By: #### L 100.0100, L500.4100, L500.4050 #### [facility] [address] [place], [address] Potassium [Moles/Vol] 4.0 mmol/L Normal 3.5-5.1 [facility] Comment on above: Performed By: #### L 100.0100, L500.4100, L500.4050 #### [facility] [address] [place], [address] Sodium [Moles/Vol] 142 mmol/L Normal 136-145 [facility] Comment on above: Performed By: #### L 100.0100, L500.4100, L500.4050 #### [facility] [address] [place], [address] T PROT 6.9 g/dL Normal 6.4-8.2 [facility] Comment on above: Performed By: #### L 100.0100, L500.4100, L500.4050 #### [facility] [address] [place], [address] Urea nitrogen [Mass/Vol] 17 mg/dL Normal 7-18 [facility] Comment on above: Performed By: #### L 100.0100, L500.4100, L500.4050 #### [facility] [address] [place], [address] Lipid Profileon 06-03-2024 Cholesterol [Mass/Vol] 268 mg/dL High 200 [facility] Comment on above: Result Comment: <200 mg/dL Desirable 200-240 mg/dL Borderline >240 mg/dL High Risk Performed By: #### L 100.0100, L500.4100, L500.4050 #### [facility] [address] [place], [address] Cholesterol in HDL [Mass/Vol] 107 mg/dL Normal [facility] Comment on above: Result Comment: The drugs N-Acetylcysteine and Metamizole may falsely depress this assay. Reference Range HDL <40 mg/dL Low HDL Cholesterol HDL >or= 60 mg/dL High HDL Cholesterol Performed By: #### L 100.0100, L500.4100, L500.4050 #### [facility] [address] [place], [address] Cholesterol in LDL [Mass/Vol] 149 mg/dL High 0-130 [facility] Comment on above: Performed By: #### L 100.0100, L500.4100, L500.4050 #### [facility] [address] [place], [address] Cholesterol in VLDL [Mass/Vol] 12 mg/dL Normal 5-40 [facility] Comment on above: Performed By: #### L 100.0100, L500.4100, L500.4050 #### [facility] [address] [place], [address] Triglyceride [Mass/Vol] 61 mg/dL Normal [facility] Comment on above: Result Comment: The drugs N-Acetylcysteine and Metamizole may falsely depress this assay. Serum Triglycerides Reference Interval Normal <150 mg/dL Borderline high 150 - 199 mg/dL High 200 - 499 mg/dL Very High > or = 500 mg/dL Performed By: #### L 100.0100, L500.4100, L500.4050 #### [facility] [address] [place], [address] Hips B/L min 2 views w/ Pelv emily 06-01-2024 Hips B/L min 2 views w/ Pelvis [facility] Imaging Services [address] [place] [address] Hips B/L min 2 views w/ Pelvis MR#: [id number] Acct: [id number] Name: JACI TALAMANTES ANN Rep #: [id number] : 1955 F 68 From: Curtis Pate MD PCP: Dr. Alexx Amaya, Status: REG CLI Study: Hips B/L min 2 views w/ Pelvis Date of Exam: 08/01/23 Exam# [id number] Ordering Dr: Shelly Weber [id number] INDICATION: B/L PAIN VS RADICULAR SX EXAMINATION/TECHNIQU E: X-RAY - XR Hips Bilateral with Pelvis when performed; Min 5 Views COMPARISON: Right hip radiographs dated 09/07/2019. ____ FINDINGS: PELVIC BONES: No displaced fracture, destructive or sclerotic lesions. Note that overlapping bowel shadows may however obscure fine detail. Sacroiliac joints are unremarkable. No widening of the pubic symphysis. HIPS: There is moderate degenerative arthrosis of the hip joints bilaterally with moderate joint space narrowing, marginal osteophyte formation, and small subchondral cyst formation. No displaced fracture seen. SOFT TISSUES: There are multiple small calcified phleboliths in the true pelvis. No soft tissue swelling or gas. RAD/Hips B/L min 2 views w/ Pelvis IMPRESSION: Moderate degenerative arthrosis of the hip joints bilaterally. No evidence of displaced pelvic or hip fracture. Electronically Signed: Curtis Pate MD at 16:03 EST , CC: Shelly Weber; Dr. Alexx Amaya DO Manager Report: Signed Normal [facility] SURINDER SCREENING W TOMOon 05-30 SURINDER SCREENING W BAN * * *Final Report* * * DATE OF EXAM: May 30 2024 11:42AM WRW [id number] - SURINDER SCREENING W BAN / PROCEDURE REASON: screening * * * * Physician Interpretation * * * * RESULT: [facility] [place] [id number] HISTORY: Patient is 68 years old and is seen for screening and is asymptomatic in both breasts. Patient states no personal history of breast cancer. Patient states no personal history of other cancers. COMPARISON STUDIES: The present examination has been compared to prior imaging studies dated 02/20/2020 (mammogram), 02/22/2021 (mammogram), 04/04/2022 (mammogram) and 05/26/2023 (mammogram). MAMMOGRAM TECHNIQUE: The study was acquired using full field digital technology and interpreted from soft copy. Digital Breast Tomosynthesis (DBT) images were obtained and used to assist in the interpretation of this examination. Computer-aided detection was utilized by the radiologist in the interpretation of this examination. MAMMOGRAM FINDINGS: There are scattered areas of fibroglandular density. No suspicious masses, calcifications or other abnormalities are seen in either breast. There are no significant changes from the prior study. IMPRESSION: There is no mammographic evidence of malignancy in either breast. Routine screening mammogram is recommended. Annual mammogram will be due in 1 year. BI-RADS Category 1: Negative RISK: Based on the Tyrer-Cuzick (TC) risk assessment model, this patient has a 5.7% lifetime risk of developing breast cancer, meaning they are at average risk for developing breast cancer. However, this is only an estimate based on available history provided on the patient's questionnaire. We encourage all patients to talk with their providers about these results, further recommendations for managing breast health, and appropriate supplemental screening options if the patient has dense breast tissue. Interpreting Radiologist: Nicanor Paz M.D. Electronically signed on: 05/31/2024 Manager Report: SWEETIE Transcribe Date/Time: May 30 2024 11:02A Dictated by: NICANOR PAZ MD This examination was interpreted and the report reviewed and electronically signed by: NICANOR PAZ MD on May 31 2024 9:32AM EST [id number] CN Normal [facility] Absolute lymphocyte countOrd ered By: Alexx Amaya on 05-30-2023 Lymphocytes Auto (Unsp spec) [#/Vol] 3.89 10*3/uL 0.83-4.51 [facility] percentageOrdered B y: Alexx Amaya on 05-30-2023 Basophils/100 WBC (Bld) 0.9 % 0-1 [facility] Bilirubin [Mass/Vol] 0.40 mg/dL 0.20-1.00 [facility] Comment on above: For patients on eltr ombopag therapy, use of Dimension [place] TBIL is not recommended. Chloride [Moles/Vol] 108 mmol/L 98-107 [facility] Cholesterol [Mass/Vol] 240 mg/dL <200 [facility] Comment on above: <200 mg/dL Desirable 200-240 mg/dL Borderline >240 mg/dL High Risk Eosinophils/100 WBC (Bld) 1.6 % 0-5 [facility] Glucose [Mass/Vol] 90 mg/dL 74-106 [facility] Neutrophils (Bld) [#/Vol] 2.8 10*3/uL 2.0-7.7 [facility] Neutrophils/100 WBC (Bld) 38.1 % 47-70 [facility] Potassium [Moles/Vol] 3.8 mmol/L 3.5-5.1 [facility] Protein [Mass/Vol] 6.5 g/dL 6.4-8.2 [facility] Sodium [Moles/Vol] 140 mmol/L 136-145 [facility] Triglyceride [Mass/Vol] 72 mg/dL <199 [facility] Comment on above: The drugs N-Acetylcy steine and Metamizole may falsely depress this assay.Serum Triglycerides Reference Interval Normal <150 mg/dL Borderline high 150 - 199 mg/dL High 200 - 499 mg/dL Very High > or = 500 mg/dL WBC (Bld) [#/Vol] 7.4 10*3/uL 4.4-11.0 [facility] Blood erythrocytes count (nu mber/volume)Ordered By: Alexx Amaya on 05-30-2023 RBC (Bld) [#/Vol] 4.36 10*6/uL 4.2-5.4 [facility] Blood hemoglobin measurement (mass/volume)Ordered By: Alexx Amaya on 05-30-2023 Hemoglobin (Bld) [Mass/Vol] 12.7 g/dL 12.0-15.0 [facility] Blood lymphocytes/100 leukoc ytesOrdered By: Alexx Amaya on 05-30-2023 Lymphocytes/100 WBC (Bld) 52.4 % 19-41 [facility] Blood monocytes/100 leukocyt esOrdered By: Alexx Amaya on 05-30-2023 Monocytes/100 WBC (Bld) 6.7 % 0-10 [facility] Blood platelet mean volumeOr dered By: Alexx Amaya on 05-30-2023 Platelet mean volume (Bld) [Entitic vol] 11.7 fL 6.2-12.0 [facility] Determination of erythrocyte mean corpuscular volume (MCV)Ordered By: Alexx Amaya on 05-30-2023 MCV (RBC) [Entitic vol] 92.4 fL 81-99 [facility] Hematocrit Auto (Bld) [Volum e fraction]Ordered By: Alexx Amaya on 05-30-2023 Hematocrit (Bld) [Volume fraction] 40.3 % 37-47 [facility] - Chemistry and C hemistry - challengeOrdered By: Alexx Amaya on 05-30-2023 ALP [Catalytic activity/Vol] 62 U/L 45-117 [facility] ALT [Catalytic activity/Vol] 27 U/L 13-56 [facility] CO2 [Moles/Vol] 29.0 mmol/L 21.0-32.0 [facility] Globulin (S) [Mass/Vol] 3.1 g/dL 2.2-4.2 [facility] Urea nitrogen/Creatinine [Mass ratio] 20.4 mg/mg 10-20 [facility] - Hematology and Cell countsOrdered By: Alexx Amaya on 05-30-2023 Erythrocyte distribution width (RBC) [Entitic vol] 47.8 fL 35.1-43.9 [facility] Erythrocyte distribution width (RBC) [Ratio] 14.1 % 11.6-14.6 [facility] Immature granulocytes/100 WBC (Bld) 0.300 % 0.0-0.9 [facility] Comment on above: IG% - Immature Granu locytes (promyelocytes, myelocytes and metamyelocytes) > 1% indicates that a LEFT SHIFT is Present. MCH (RBC) [Entitic mass] 29.1 pg 27.0-32.0 [facility] Nucleated RBC/100 WBC (Bld) [Ratio] 0 % 0-5 [facility] MCHC Auto (RBC) [Mass/Vol]Or dered By: Alexx Amaya on 05-30-2023 MCHC (RBC) [Mass/Vol] 31.5 g/dL 32-36 [facility] No Panel InformationOrdered By: Alexx Amaya on 05-30-2023 Estimated GFR (MDRD) Amer 87 mL/min >60 [facility] Comment on above: GFR Calc Estimated GFR (MDRD) Non-Af Amer 72 mL/min >60 [facility] Comment on above: Non- GFR Calc Platelets bldOrdered By: Sarah Amaya on 05-30-2023 Platelets (Bld) [#/Vol] 187 10*3/uL 150-450 [facility] Serum or plasma albumin janet urement (mass/volume)Ordered By: Alexx Amaya on 05-30-2023 Albumin [Mass/Vol] 3.4 g/dL 3.2-5.0 [facility] Serum or plasma albumin/glob ulin mass ratioOrdered By: Alexx Amaya on 05-30-2023 Albumin/Globulin [Mass ratio] 1.1 {ratio} 0.9-2.4 [facility] Serum or plasma calcium janet urement (mass/volume)Ordered By: Alexx Amaya on 05-30-2023 Calcium [Mass/Vol] 9.0 mg/dL 8.5-10.1 [facility] Serum or plasma cholesterol in HDL measurement (mass/volume)Ordered By: Alexx Amaya on 05-30-2023 Cholesterol in HDL [Mass/Vol] 86 mg/dL >40 [facility] Comment on above: The drugs N-Acetylcy steine and Metamizole may falsely depress this assay. Reference Range HDL <40 mg/dL Low HDL Cholesterol HDL >or= 60 mg/dL High HDL Cholesterol Serum or plasma cholesterol in VLDL measurement (mass/volume)Ordered By: Alexx Amaya on 05-30-2023 Cholesterol in VLDL [Mass/Vol] 14 mg/dL 5-40 [facility] Serum or plasma creatinine m easurement (mass/volume)Ordered By: Alexx Amaya on 05-30-2023 Creatinine [Mass/Vol] 0.84 mg/dL 0.55-1.02 [facility] Comment on above: The validity of the calculated GFR & GFRAA in patients over 70 years has not been determined. Clinical correlation is essential. Serum or plasma low density lipoprotein (LDL) cholesterol measurement (mass/volume)Ordered By: Alexx Amaya on 05-30-2023 Cholesterol in LDL [Mass/Vol] 140 mg/dL 0-130 [facility] Serum or plasma urea nitroge n measurement (mass/volume)Ordered By: Alexx Amaya on 05-30-2023 Urea nitrogen [Mass/Vol] 17 mg/dL 7-18 [facility] Thin prep Papanicolaou smear with manual screeningOrdered By: Alexx Amaya on 05-30-2023 Thin prep Papanicolaou smear with manual screening 17 U/L 15-37 [facility] Thin prep Papanicolaou smear with manual screening 3 5-15 [facility] SURINDER SCREENING W TOMOon 04-04 [facility] OCT MACULA CIRRUS OU (BOTH E YES) [facility] Vital Signs Date Time Vital Sign Value Performing Clinician Faci lity 07-19-2024 08:55-0500 Body height 165.[address] Alexx Amaya DO Work Phone: [facility] Encounters Encounter Date Encounter Type Care Provider Facility Start: 10-13-2024 End: 10-13-[address] Steven Magdaleno MD -Laboratory Work Phone: Start: 10-13-2024 End: 10-13-[address] Alexx Amaya DO Work Phone: [facility] Work Phone: Start: 07-19-2024 End: 07-19-[address] Alexx Amaya DO -Outpatient Bone Densitometry Work Phone: Start: 07-19-2024 End: 07-19-2024 ambulatory Alexx Amaya Facility:[facility] Start: 06-03-2024 End: 06-03-2024 ambulatory Alexx Amaya Facility:[facility] Start: 06-01-2024 End: 06-01-2024 ambulatory Shelly Weber Facility:[facility] Start: 05-30-2024 End: 05-30-2024 ambulatory ALEXX DIAZUTZMAN Facility:[facility] Start: 05-30-2024 End: 05-30-2024 Subsequent hospital visit by physician Screen Mammo [facility] Mammogram Start: 04-29-2024 ambulatory Alexx Amaya Facility: [facility] Start: 06-06-2023 End: 06-06-2023 ambulatory [facility] Work Phone: Start: 06-06-2023 End: 06-06-2023 Patient encounter procedure [facility] - [facility] Work Phone: Start: 05-30-2023 End: 05-30-2023 ambulatory [facility] Work Phone: Start: 05-30-2023 End: 05-30-2023 Patient encounter procedure [facility] Work Phone: Start: 05-26-2023 Documentation procedure Mammog shonna Coordinator [facility] Start: 05-26-2023 Letter encounter Mammography Coordinator [facility] Department Start: 12-03-2022 End: 12-03-2022 Patient encounter procedure Efren Henderson MD Work Phone: Ophthalmology Comment on above: Exudative age-relate d macular degeneration, unspecified laterality, unspecified stage (HCC) (Primary Dx); Retinal edema Start: 04-04-2022 Documentation procedure Mammog shonna Coordinator [facility] Start: 04-04-2022 Letter encounter Mammography Coordinator [facility] Start: 04-04-2022 End: 04-04-2022 Subsequent hospital visit by physician Screen Mammo [facility] Mammogram Start: 01-30-2022 End: 01-30-2022 Patient encounter procedure [facility]Radiology, [facility] Procedures Date Procedure Procedure Detail Performing Clinician Start: 07-19-2024 Dual energy X-ray absorptiometry Dr. Alexx Amaya DO Work Phone: Start: 11-18-2023 MRI of cervical spine Start: 12-03-2022 Computerized ophthal randee imaging retina Efren Henderson MD Work Phone: Start: 04-04-2022 SURINDER SCREENING W BAN Lea f Provider Start: 04-04-2022 Mammography Screen Wst r Start: 01-30-2022 X-ray of chest posteroanterior view Start: 07-03-2016 Colonoscopy Screen Wst r Plan of Treatment Date Care Activity Detail Author Start: 2028 RSV Vaccine (1 - 1-d ose 75+ series) RSV Vaccine (1 - 1-dose 75+ series) [facility] Start: 05-26-2024 Mammography Mammogram Screening [facility] Start: 05-26-2024 Screening for malign ant neoplasm of breast Mammogram Screening [facility] Start: 07-20-2023 Advance Directive Discussion Advance Directive Discussion [facility] Start: 04-04-2023 Mammography MAMMOGRAM [facility] Start: 07-20-2022 ADVANCE DIRECTIVE DISCUSSION ADVANCE DIRECTIVE DISCUSSION [facility] Start: 07-20-2022 DEPRESSION ASSESSMENT DEPRESSION ASS ESSMENT [facility] Start: 03-20-2022 Influenza vaccination INFLUENZA (#1) [facility] Start: 07-20-2021 ADVANCE DIRECTIVE DISCUSSION ADVANCE DIRECTIVE DISCUSSION [facility] Start: 07-03-2021 Colonoscopy COLONOSCOPY [facility] Start: 07-03-2021 COLORECTAL CANCER SCREENING COLORECTAL CANCER SCREENING [facility] Start: 07-03-2021 Screening for malign ant neoplasm of colon [facility] Start: 2018 BONE DENSITY BONE DENSITY [facility] Start: 2018 Bone Density Screening Bone Density Screening [facility] Start: 2018 Pneumococcal Vaccine : 65+ (1 - PCV) Pneumococcal Vaccine: 65+ (1 - PCV) [facility] Start: 2018 Pneumococcal Vaccine : 65+ (1 of 1 - PCV) Pneumococcal Vaccine: 65+ (1 of 1 - PCV) [facility] Start: 2018 PNEUMOCOCCAL: 65+ (1 - PCV) PNEUMOCOCCAL: 65+ (1 - PCV) [facility] Start: 2018 Screening for osteoporosis Bone Dens ity Screening [facility] Start: 2013 RSV Vaccine (1 - 1-d ose 60+ series) RSV Vaccine (1 - 1-dose 60+ series) [facility] Start: 09-27-2003 SHINGRIX VACCINE (1 of 2) SHINGRIX V ACCINE (1 of 2) [facility] Start: 1998 COLOGUARD (FIT-DNA) COLOGUARD (FIT-D NA) [facility] Start: [address] COLONOGRAPHY [facility] Start: 1998 DIABETES SCREEN DIABETES SCREEN [facility] Start: 1998 Diabetes Screening Diabetes Screenin g [facility] Start: 1998 FECAL OCCULT BLOOD FECAL OCCULT BLOO D [facility] Start: 1998 Lipid 1996 panel - S alia or Plasma Lipid Screening [facility] Start: 1998 Lipid panel Lipid Screening [facility] Start: 1998 LIPID SCREEN LIPID SCREEN [facility] Start: 1998 Screening for malign ant neoplasm of colon [facility] Start: 1998 SIGMOIDOSCOPY SIGMOIDOSCOPY [facility] Start: 1972 Urine microalbumin profile [facility] Start: 09-27-1971 Anxiety Screening Anxiety Screening [facility] Start: 09-27-1971 Depression Screening Depression Scre ening [facility] Start: 09-27-1971 HEPATITIS C SCREENING HEPATITIS C SC [facility] Start: 09-27-1971 Hepatitis C screening Hepatitis C [facility] Start: 1965 Adult depression scr eening assessment DEPRESSION SCREENING [facility] Immunizations Immunization Date Immunization Notes Care Provider Aranza perkins 10-11-2020 Covid (Pfizer) [facility] 09-20-2020 Covid (Pfizer) [facility] Payers Date Payer Category Payer Self-pay [id number] 2018 Medicare MEDICARE MEDICAR E A AND B [id number] 2018-Present [phone] [place] [address] Medicare [id number] 2018 Private Health Insurance [id number] 2018 Medicare [id number] 2018 Private Health Insurance [facility] [id number] 2005 Unknown [id number] Unknown [id number] Unknown [id number] Unknown [id number] Unknown [id number] Unknown [id number] Social History Date Type Detail Facility Start: 10-02-2021 End: 10-02-2021 Tobacco smoking status NHIS Unknown if ever smoked [facility] Start: 1955 Sex Assigned At Female [facility] Start: 10-02-2021 Tobacco smoking stat us NJIS Never smoked tobacco [facility] Start: 03-05-2022 End: 12-03-2022 Alcohol intake Current drinker of alcohol (finding) [facility] Start: 1955 Sex Assigned At Not on file C [facility] Start: 03-25-2022 End: 04-04-2022 Exposure to SARS-CoV-2 (event) Not sure [facility] Start: 12-03-2022 End: 05-26-2023 History of Social function [facility] Start: 12-03-2022 End: 05-26-2023 Tobacco use panel [facility] National Score (1-10 0), lower number is lower risk 58 [facility] Start: 10-08-2022 Sexual orientation Heterosexual (fin ding) [facility] Start: 10-18-2024 Sex Female (finding) Mai r [facility] History of Present illness Narrative 05-30-2024 Brayden Tapia Mammo Tech - 05/30/2024 10:50 AM EST Note Date & Type Note Facility 05-30-2024 History of Presen t illness Narrative Radiology Service Progress Note PATIENT NAME: Jaci Talamantes DATE OF SERVICE: May 30, 2024 TIME: 11:43 AM PATIENT IDENTITY VERIFICATION COMPLETED USING TWO (2) IDENTIFIERS: Name and Date of confirmed by patient verbally. FALL SCREENING: Has the patient had 2 falls in the last year or 1 fall with injury or currently using an Ambulatory Assistive Device (Walker, Cane, Wheelchair, Crutches, etc.)? No PATIENT GENDER DATA: Female. status: : No status: NO. PATIENT RELEVANT IMPLANT DATA REVIEWED: Not Applicable PATIENT PRESENTS WITH AN IMPLANTABLE OR ATTACHED AIR TABLE OPERATOR: No RADIOLOGY DEPARTMENT: Mammography PERIPHERAL IV DATA: Not applicable SIGNED BY: George Forbes May 30, 2024 11:43 AM documented in this encounter [facility] Progress note 05-30-2024 Note Date & Type Note Facility 05-30-2024 Note HNO ID: [id number] Author: BRAYDEN TAPIA Mammo Tech Service: ? Author Type: Technologist Type: Progress Notes Filed: 05/30/2024 11:44 Note Text: Radiology Service Progress Note PATIENT NAME: Jaci Talamantes DATE OF SERVICE: May 30, 2024 TIME: 11:43 AM PATIENT IDENTITY VERIFICATION COMPLETED USING TWO (2) IDENTIFIERS: Name and Date of confirmed by patient verbally. FALL SCREENING: Has the patient had 2 falls in the last year or 1 fall with injury or currently using an Ambulatory Assistive Device (Walker, Cane, Wheelchair, Crutches, etc.)? No PATIENT GENDER DATA: Female. status: : No status: NO. PATIENT RELEVANT IMPLANT DATA REVIEWED: Not Applicable PATIENT PRESENTS WITH AN IMPLANTABLE OR ATTACHED AIR TABLE OPERATOR: No RADIOLOGY DEPARTMENT: Mammography PERIPHERAL IV DATA: Not applicable SIGNED BY: George Forbes May 30, 2024 11:43 AM [facility] Note 05-26-2023 Letter - Coordinator, Mammography - 05/26/2023 1:09 PM EST Note Date & Type Note Facility 05-26-2023 Miscellaneous Notes Formattin g of this note might be different from the original. May 27, 2023 PID: [id number] Jaci Talamantes [address] [place] [address] Dear Ms. Talamantes, We are pleased to inform you that the results of your recent breast imaging exam on 05/26/2023 are normal. Early detection of cancer is very important. We also understand recommendations regarding breast cancer screening are controversial. Please discuss with your primary care provider which strategy is best for you and whether a mammogram is right for you. Your imaging studies and report will be kept on file at [facility] as part of your permanent medical record and are available for your continuing care. Thank you for allowing us to help in meeting your health care needs. Sincerely, Dr. 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 Murphy - Discussed Syfovre, and lack of data on patients receiving treatment with both anti-VEGF and Syfovre 2. Pseudophakia, right eye - Stable, monitor 3. Cataracts, Left eye 4. Posterior vitreous detachment Right eye I have confirmed and edited as necessary the relevant ophthalmic history, ROS, and the clinical/neuro exam findings as obtained by others. I have seen and examined this patient. I have discussed the case and the management of this patient's care with the Resident/Fellow, if applicable. I also have reviewed and agree with the assessment and plan as stated above and agree with all of its relevant components on 12/03/2022 Efren Henderson MD [facility] Chair of Ophthalmology Research Professor of Ophthalmology, [facility], [facility] documented in this encounter [facility] Note 04-04-2022 Letter - Mammography Coordinator - 04/04/2022 11:07 AM EDT Note Date & Type Note Facility 04-04-2022 Miscellaneous Notes Formattin g of this note might be different from the original. April 04, 2022 PID: [id number] Jaci Talamantes [address] [facility], [place] [address] Dear Ms. Talamantes, We are pleased to inform you that the results of your recent breast imaging exam on 04/04/2022 are normal. Early detection of cancer is very important. We also understand recommendations regarding breast cancer screening are controversial. Please discuss with your primary care provider which strategy is best for you and whether a mammogram is right for you. Your imaging studies and report will be kept on file at [facility] as part of your permanent medical record and are available for your continuing care. Thank you for allowing us to help in meeting your health care needs. Sincerely, Dr. Jeffries Interpreting Radiologist [facility] (Normal over 40) documented in this encounter [facility] History of Present illness Narrative 04-04-2022 RT Shay(R) - 04/04/2022 10:10 AM EDT Note Date & Type Note Facility 04-04-2022 History of Presen t illness Narrative Radiology Service Progress Note PATIENT NAME: Jaci Talamantes DATE OF SERVICE: April 04, 2022 TIME: 10:07 AM PATIENT IDENTITY VERIFICATION COMPLETED USING TWO (2) IDENTIFIERS: Name and Date of confirmed by patient verbally. FALL SCREENING: Has the patient had 2 falls in the last year or 1 fall with injury or currently using an Ambulatory Assistive Device (Walker, Cane, Wheelchair, Crutches, etc.)? No PATIENT GENDER DATA: Female. status: : No status: NO. PATIENT RELEVANT IMPLANT DATA REVIEWED: Not Applicable RADIOLOGY DEPARTMENT: Mammography PERIPHERAL IV DATA: Not applicable SIGNED BY: RT Shay(R) April 04, 2022 10:07 AM documented in this encounter [facility] Evaluation note Note Date & Type Note Facility Evaluation note No assessment information availa [facility] Work Phone: Evaluation note Note Date & Type Note Facility Evaluation note Diagnosis Exudative age-related macular degeneration, unspecified laterality, unspecified stage (HCC)- Primary Retinal edema documented in this encounter [facility] Reason for referral (narrative) Note Date & Type Note Facility Reason for referral (narrative) No reason for referral information available [facility] Work Phone: Chief Complaint and Reason for Visit Chief Complaint CONTUSSION Chief Complaint CERVICAL RAD Chief Complaint Admit Date OSTEO July 19, 2024 8:53am CHRONIC NSAID'S October 13, 2024 12: 00pm Family History No Family History Records Found Relationship Condition Age at Onset Recorded Date/T genet mother Diabetes mellitus Unknown Cardiac disease Unknown Hypertension Unknown father Cardiac disease Unknown Malignant neoplasm of colon Unknown Advance Directives No Advanced Directives Records Found Advance Directive Response Recorded Date/ Time Living Will No October 02, 2021 11:29am Power of Dental Equipment Installer And Servicer No October 02 11:29am Advance Directive Response Recorded Date/ Time Living Will No October 02, 2021 10:29am Power of Dental Equipment Installer And Servicer No October 02 10:29am Medications Administered Section Active Administered Medications - up to 3 most recent administrations Medication Order MAR Action Action Date Dose Rate Site fluorescein-benoxinate 0.25-0.4 % 1 Drop (FLURESS) 1 Drop, BOTH EYES, DIRECTED, Starting on Thu12/03/22 at 1030, Until Thu12/03/22 at 2229, Administer for applanation tonometry. In the event of a Fluress shortage, administer Gypsy-Fluor 1 drop into both eyes as directed for applanation tonometry Given 12/03/2022 10:30 AM EDT 1 Drop PHENYLephrine 2.5 % 1 Drop (AK-DILATE, KIMMIE-SYNEPHRINE) 1 Drop, BOTH EYES, DIRECTED, Starting on Thu12/03/22 at 1030, Until Thu12/03/22 at 2229, Administer for dilation PROTECT FROM LIGHT Given 12/03/2022 10:30 AM EDT 1 Drop tropicamide 1 % 1 Drop (MYDRIACYL) 1 Drop, BOTH EYES, DIRECTED, Starting on Thu12/03/22 at 1030, Until Thu12/03/22 at 2229, Administer for dilation Given 12/03/2022 10:30 AM EDT 1 Drop Summary Purpose Additional Source Comments Goals (unrecognized section and content) Goals may be documented in a n alternate sectionGoals may be documented in an alternate sectionGoals may be documented in an alternate sectionGoals may be documented in an alternate section Source Comments (unrecognize d section and content) In the event this informatio n is protected by the Federal Confidentiality of Alcohol and Drug Abuse Patient Records regulations: The Federal rules restrict any use of the information to criminally investigate or prosecute any alcohol or drug abuse patient.[facility] the event this information is protected by the Federal Confidentiality of Alcohol and Drug Abuse Patient Records regulations: The Federal rules restrict any use of the information to criminally investigate or prosecute any alcohol or drug abuse patient.[facility] the event this information is protected by the Federal Confidentiality of Alcohol and Drug Abuse Patient Records regulations: The Federal rules restrict any use of the information to criminally investigate or prosecute any alcohol or drug abuse patient.[facility] the event this information is protected by the Federal Confidentiality of Alcohol and Drug Abuse Patient Records regulations: The Federal rules restrict any use of the information to criminally investigate or prosecute any alcohol or drug abuse patient.[facility] the event this information is protected by the Federal Confidentiality of Alcohol and Drug Abuse Patient Records regulations: The Federal rules restrict any use of the information to criminally investigate or prosecute any alcohol or drug abuse patient.[facility] Care Teams (unrecognized sec tion and content) Export Freight Specialist Relationship Specialty Start Date End Date Joe Sheridan PCP - General Family Practice 09/08/11 Export Freight Specialist Relationship Specialty Start Date End Date Joe Sheridan PCP - General Family Practice 09/08/11 Export Freight Specialist Relationship Specialty Start Date End Date Joe Sheridan PCP - General Family Medicine 09/08/11 Export Fre[employer] Specialist Relationship Specialty Start Date End Date Alexx Amaya DO [address] [place], [place] [id number] PCP - General Family Medicine 05/26/23 Team Status: Active Member Role Status Dates Dr. Joe Sheridan MD Family Provider Active Dr. Alexx Amaya DO Primary Care Provider Active Team Status: Inactive Member Role Status Dates Dr. Alexx Amaya DO Primary Care Prov ider, Attending Provider, Referring Provider Active Team Status: Inactive Member Role Status Dates Dr. Alexx Amaya DO Primary Care Provider Active Dr. Lida Rock MD Attending Provider, Referring P kayode Active Export Freight Specialist Relationship Specialty Start Date End Date Alexx Amaya DO [address] [place] [address] PCP - General Family Medicine 05/26/23 Team Status: Inactive Member Role Status Dates Dr. Alexx Amaya DO Primary Care Provider Active Start: July 19, 2024 End: July 19, 2024 Dr. Alexx Amaya DO Attending Provider Active Start: July 19, 2024 End: July 19, 2024 Dr. Alexx Amaya DO Referring Provider Active Start: July 19, 2024 End: July 19, 2024 Team Status: Inactive Member Role Status Dates Dr. Alexx Amaya DO Primary Care Provider Active Start: October 13, 2024 End: October 13, 2024 Dr. Steven Magdaleno MD Attending Provider Active Start: October 13, 2024 End: October 13, 2024 Dr. Steven Magdaleno MD Referring Provider Active Start: October 13, 2024 End: October 13, 2024 Reason for Visit (unrecogniz ed section and content) Reason Comments Macular Degeneration Evaluation Second o poncho INFORMATION SOURCE (unrecogn ized section and content) DATE CREATED AUTHOR 05/31/2024 [facility] DATE CREATED AUTHOR AUTHOR'S ORGANIZ ATION 11/11/2024 [facility] FOR RECORDS PERTAINING TO PATIENTS WHO ARE OR HAVE BEEN ENROLLED IN A CHEMICAL DEPENDENCY/SUBSTANCEABUSE PROGRAM, SOME INFORMATION MAY BE OMITTED. This clinical summary was aggregated from multiple sources. Caution should be exercised in using it in the provision of clinical care. This summary normalizes information from multiple sources, and as a consequence, information in this document may materially change the coding, format and clinical context of patient data. In addition, data may be omitted in some cases. CLINICAL DECISIONS SHOULD BE BASED ON THE PRIMARY CLINICAL RECORDS. [employer] provides no warranty or guarantee of the accuracy or completeness of information in this document.
[2025-07-05 09:29] LABS: Hematocrit 35.9 % (37-47); Hemoglobin 12.0 g/dL (12.0-15.0); Immature Granulocytes Count 0.010 X10^3/uL (0.0-0.0); Mean Corp Hgb Conc 33.4 g/dL (32-36); Mean Corpuscular Volume 91.8 fL (81-99); Mean Platelet Vol. 10.9 fl (6.2-12.0); NRBC Flagged by Analyzer 0 % (0-5); Platelet Count 177 K/mm3 (150-450); RBC Distribution Width CV 12.6 % (11.6-14.6); RBC Distribution Width SD 42.3 fl (35.1-43.9); Red Blood Count 3.91 M/mm3 (4.2-5.4); White Blood Count 5.2 K/mm3 (4.4-11.0)
[2025-07-05 10:32] LABS: AST(SGOT) 28 U/L (<=31); Alanine Aminotransfer ALT/SGPT 23 U/L (<=34); Albumin, Serum 3.9 g/dL (3.4-4.8); Alkaline Phosphatase 65 U/L (35-104); Anion Gap 8 (5-15); BUN 19 mg/dL (4-19); BUN/Creat Ratio 27.2 RATIO (10-20); Calcium,Total 9.3 mg/dL (7.6-11.0); Carbon Dioxide 26.4 mmol/L (21.0-32.0); Chloride 106 mmol/L (98-108); Cholesterol 239 mg/dL (<=200); Globulin 2.3 g/dL (2.2-4.2); Glucose 101 mg/dL (70-99); Low Density Lipoprotein Calc. 147 mg/dL; Potassium 4.2 mmol/L (3.3-5.1); Triglycerides 47 mg/dL; Very Low Density Lipoprotein 9 mg/dL (5-40); cholesterol:hdl ratio screen 2.85
== END | disposition home or self-care (01) ==
LOC: LAB 08:53
PROVIDERS: PCP Family Medicine; Visit Provider Family Medicine
DX: R53.83 Other fatigue (principal); E78.5 Hyperlipidemia, unspecified
CPT/HCPCS: 36415; 80053; 80061; 85025